=== PATIENT | male | born 1960 | race Caucasian/White ===

== ENCOUNTER 2016-06-01 17:14 | Emergency (ER) | payer OTHER ==
[~2016-06-01] VITALS: Ht 175.3 cm; Wt 101.5 kg
[~2016-06-01 17:14] MED LIST: COZA100T PO; PERC5TAB12 PO
[2016-06-01 17:15] VITALS: BP 140/88; PULSE 86; RESP 20; TEMP 97.9; O2SAT 99
--- NOTE | 2016-06-01 17:30 | PD ---
Physical Exam Date Seen by Provider: Jun 01, 2016 Time Seen by Provider: 17:24 Narrative Pt is a 55 year old male presenting to the ED for evaluation of pain in his rectum and penis. He also reports flu-like symptoms, body aches. Pt reports hesitancy since Monday the burning pain with urination started on Monday. No discharge from penis. Pt reports a slightly enlarged prostate. He has a hx of HTN and pt is also followed by pain management but has not started the narcotic pain medicine yet. VSS. Awaiting bed placement. Data Data Last Documented VS Vital Signs Date Time Temp Pulse Resp B/P Pulse Ox O2 Delivery O2 Flow Rate FiO2 06/01/16 17:15 97.9 86 20 140/88 99 Room Air MDM Supervised Visit with DIANA: Rosaline Hopson Jun 01, 2016 17:30
[2016-06-01] MEDS ORDERED: LOSA100T3 PO (17:49)
[2016-06-01 17:50] LABS: BLOOD, URINE NEG (NEG); COMMENT (UR) CULT NOT INDICATED; CULTURE IF INDICATED CULT NOT INDICATED; GLUCOSE,URINE NEG (NEG); KETONE, URINE NEG (NEG); MUCUS URINE FEW /lpf (OCC); NITRITE,URINE NEG (NEG); URINE COLOR LIGHT-YELLOW (YELLW/STRAW)
[2016-06-01] MEDS ORDERED: OXYC1TAB63 PO (17:50)
--- NOTE | 2016-06-01 18:00 | PD ---
HPI Chief Complaint: Complaint Time Seen by Provider: 17:53 Travel History International Travel<30 days: No Contact w/Intl Traveler<30days: No Traveled to known affect area: No History of Present Illness HPI Patient 55-year-old male presents to the emergency department with dysuria, pain when he has a bowel movement and a feeling of urgency. Patient denies any urethral discharge. Patient states she's never had these type symptoms in the past. Patient self he had an elevated PSA in the past but never seen a urologist. Patient also has complaint of body aches all over his body and thinks might have the flu. He states that he usually has body aches all over because he has history of arthritis and has a pain management doctor who is prescribing him narcotics so he has not filled the prescription recently. Patient denies any fever denies any upper respiratory symptoms. Denies any abdominal pain nausea vomiting. PFSH Past Medical History Cardiac Catheterization: Yes Cardiovascular Problems: Yes (HTN, ON MEDS) High Cholesterol: Yes Diabetes: No (PRE-DIABETIC, NO MEDS) Diminished Hearing: No Hypertension: Yes Respiratory: No (NON SMOKER) Tetanus Vaccination: > 5 Years Influenza Vaccination: No Social History Alcohol Use: Yes (2 DRINKS PER WEEK) Tobacco Use: No Substance Use: No Allergies-Medications (Allergen,Severity, Reaction): Coded Allergies: No Known Allergies (Verified , 06/01/16) Reported Meds & Prescriptions Reported Meds & Active Scripts Active Levaquin (Levofloxacin) 750 Mg Tab 750 Mg PO DAILY 10 Days Reported Oxycodone-Acetaminophen 5-325 mg Tab 1 Tab PO Q6H PRN Losartan-Hydrochlorothiazide 100-12.5 Mg Tab 1 Tab PO DAILY Review of Systems Except as stated in HPI: all other systems reviewed are Neg Physical Exam Narrative GENERAL: Well-developed well-nourished no apparent distress SKIN: Focused skin assessment warm/dry. HEAD: Atraumatic. Normocephalic. EYES: Pupils equal and round. No scleral icterus. No injection or drainage. ENT: No nasal bleeding or discharge. Mucous membranes pink and moist. TMs clear bilaterally. Oropharynx clear moist. NECK: Trachea midline. No JVD. CARDIOVASCULAR: Regular rate and rhythm. No murmur appreciated. RESPIRATORY: No accessory muscle use. Clear to auscultation. Breath sounds equal bilaterally. GASTROINTESTINAL: Abdomen soft, non-tender, nondistended. Hepatic and splenic margins not palpable. GENITOURINARY: Grossly normal male genitalia, testes normal, circumcised, no discharge. No hernia. Rectal exam shows minimally tender prostate without any masses felt. No gross blood no gross melena. MUSCULOSKELETAL: No obvious deformities. No clubbing. No cyanosis. No edema. NEUROLOGICAL: Awake and alert. No obvious cranial nerve deficits. Motor grossly within normal limits. Normal speech. PSYCHIATRIC: Appropriate mood and affect; insight and judgment normal. Data Data Last Documented VS Vital Signs Date Time Temp Pulse Resp B/P Pulse Ox O2 Delivery O2 Flow Rate FiO2 06/01/16 18:21 97.8 76 16 136/84 100 06/01/16 17:15 Room Air Orders Urinalysis - C+S If Indicated (06/01/16 17:30) Gc And Chlamydia Pcr (06/01/16 17:30) Ed Poc Ultrasound (06/01/16 ) Ibuprofen (Motrin) (06/01/16 18:15) Labs Laboratory Tests Test 06/01/16 17:20 Urine Color LIGHT-YELLOW Urine Turbidity CLEAR Urine pH 5.0 Urine Specific [place] 1.008 Urine Protein NEG mg/dL Urine Glucose (UA) NEG mg/dL Urine Ketones NEG mg/dL Urine Occult Blood NEG Urine Nitrite NEG Urine Bilirubin NEG Urine Urobilinogen LESS THAN 2.0 MG/DL Urine Leukocyte Esterase NEG Urine WBC 1 /hpf Urine Mucus FEW /lpf Microscopic Urinalysis Comment CULT NOT INDICATED MDM Medical Decision Making Medical Screen Exam Complete: Yes Emergency Medical Condition: Yes Differential Diagnosis prostatitis, urinary tract infection, STD, hernia unlikely, torsion unlikely, epididymitis unlikely. Narrative Course Patient was roomed in the emergency department, he appears well in no apparent distress. I highly doubt influenza causing symptoms because he normally has body aches. This worse today. He has not had any other URI symptoms. He was offered testing for flu however at this point he is been having increased body aches for more than 48 hours there is no indication for Tamiflu anyways. He agrees with this and will symptomatically management home. His UA is negative however he does have symptoms suggestive of prostatitis and we'll treat with Levaquin at this time. Discussed with them need follow-up with a urologist and return to ED criteria. There is no indication further workup at this time. Stable for discharge. Diagnosis Primary Impression: Prostatitis Qualified Code: N41.0 - Acute prostatitis Referrals: Roberto Hooper MD Med/Other Pt SpecificInfo: Prescription(s) given Scripts Levofloxacin (Levaquin)750 Mg Eps135 Mg PO DAILY 10 Days Ref 0 Prov:Jeremiah Andrade MD 06/01/16 Disposition: 01 DISCHARGE HOME Condition: Stable Jeremiah Andrade MD Jun 01, 2016 18:00
[2016-06-01] MEDS ORDERED: LEVA750T PO (18:10)
[2016-06-01] MEDS ORDERED: IBUPROFEN 600 MG TAB PO ONE (18:15)
[2016-06-01 18:21] VITALS: BP 136/84; TEMP 97.8
[2016-06-02 04:22] LABS: CHLAMYDIA PCR NOT DETECTED (NOT DETECT); NEISSERIA PCR NOT DETECTED (NOT DETECT)
== END 2016-06-01 18:21 | disposition home or self-care (01) ==
LOC: NEPD 17:14
DX: N41.0 Acute prostatitis (principal); R97.20 Elevated prostate specific antigen [PSA]; I10 Essential (primary) hypertension
CPT/HCPCS: 81001; 87491; 87591; 99283